=== PATIENT | female | born 1965 | race Caucasian/White ===

== ENCOUNTER 2017-04-29 05:59 | Day surgery (SDC) | payer BC, OTHER ==
[2017-04-28 09:55] VITALS: BP 138/90
[2017-04-28 10:16] LABS: ALANINE AMINOTRANSFERASE 18 U/L (12-78); ALBUMIN 3.8 g/dL (3.4-5.0); ANION GAP 8 mmol/L (5-15); CALCIUM 9.3 mg/dL (8.5-10.1); CHLORIDE 103 mmol/L (98-107); CREATININE 0.97 mg/dL (0.55-1.02)
[2017-04-28 10:19] LABS: ALKALINE PHOSPHATASE 70 U/L (45-117); BILIRUBIN,TOTAL 0.5 mg/dL (0.2-1.0); TOTAL PROTEIN 7.5 g/dL (6.4-8.2)
[~2017-04-29] VITALS: Ht 162.6 cm; Wt 111.0 kg
[~2017-04-29 05:59] MED LIST: LOSA100T6 PO
[2017-04-29] MEDS ORDERED: BUPIVACAINE/PF 0.5% ONE (07:12)
[2017-04-29] MEDS ORDERED: EPINEPHRINE 1 MG/ML, 1ML ONE (07:13)
[2017-04-29] MEDS ORDERED: BACITRACIN 50,000 UNIT ONE (07:13)
[2017-04-29] MEDS ORDERED: LACTATED RINGERS 1,000 ML IV SCH (07:15)
[2017-04-29 07:16] VITALS: BP 138/90
[2017-04-29] MEDS ORDERED: DEXAMETHASONE 4 MG/ML, 1ML ONE (08:03)
[2017-04-29] MEDS ORDERED: ROCURONIUM 10 MG/ML,10ML ONE ×2 (08:03→08:04)
[2017-04-29] MEDS ORDERED: GLYCOPYRROLATE 0.2MG/1ML, 5ML ONE (08:03)
[2017-04-29] MEDS ORDERED: NEOSTIGMINE 1 MG/ML, 10ML ONE (08:03)
[2017-04-29] MEDS ORDERED: ONDANSETRON 2MG/ML, 2ML ONE (08:03)
[2017-04-29] MEDS ORDERED: SUCCINYLCHOLINE 20 MG/ML, 10ML ONE (08:03)
[2017-04-29] MEDS ORDERED: PROPOFOL 10 MG/ML, 20ML ONE ×3 (08:03→08:54)
[2017-04-29] MEDS ORDERED: CEFAZOLIN 1,000 MG ONE (08:03)
[2017-04-29] MEDS ORDERED: MIDAZOLAM 1 MG/ML, 2ML ONE ×2 (08:06)
[2017-04-29] MEDS ORDERED: FENTANYL PF 100 MCG/2ML ONE ×2 (08:06→09:46)
[2017-04-29] MEDS ORDERED: LIDOCAINE GEL 2%, 5ML ONE ×10 (08:25→08:26)
[2017-04-29] MEDS: OXYcodone 5 MG/5 ML ORAL.SOL UDC PO PRN ×2 (08:48→09:48)
[2017-04-29] MEDS ORDERED: FENTANYL PF 100 MCG/2ML IV PRN (09:00)
[2017-04-29] MEDS ORDERED: EPHEDRINE 50 MG/ML, 1ML IVPush PRN (09:00)
[2017-04-29] MEDS ORDERED: ALBUTEROL SULFATE 2.5 MG/3 ML NPPB PRN (09:00)
[2017-04-29] MEDS ORDERED: METOCLOPRAMIDE 5 MG/ML, 2ML IV PRN (09:00)
[2017-04-29] MEDS ORDERED: HYDROmorphone 1 MG/ML, 1ML IV PRN (09:00)
[2017-04-29] MEDS ORDERED: MIDAZOLAM 1 MG/ML, 2ML IV PRN (09:00)
[2017-04-29] MEDS ORDERED: LABETALOL 5MG/ML, 20ML IV PRN (09:00)
[2017-04-29] MEDS ORDERED: ONDANSETRON 2MG/ML, 2ML IVPush PRN (09:00)
[2017-04-29] MEDS ORDERED: hydrALAzine 20 MG/ML, 1ML IV PRN (09:00)
[2017-04-29] MEDS ORDERED: MEPERIDINE/PF 50 MG/ML ONE (09:46)
[2017-04-29] MEDS ORDERED: OXYcodone 5 MG/5 ML ORAL.SOL UDC ONE (09:46)
[2017-04-29] MEDS: MEPERIDINE/PF 25MG/0.5ML IVPush PRN ×2 (09:48→10:04)
[2017-04-29] MEDS ORDERED: KETOROLAC 30 MG/1 ML ONE (10:20)
[2017-04-29] MEDS ORDERED: KETOROLAC 30 MG/1 ML IVPush STA (10:22)
[2017-04-29] MEDS ORDERED: ACETAMINOPHEN 325 MG TABLET ONE (11:55)
[2017-04-29] MEDS ORDERED: ACETAMINOPHEN 325 MG TABLET PO PRN (14:30)
== END 2017-04-29 12:05 ==
LOC: OUT 05:59
PROVIDERS: ATTEND Surgery
DX: T85.9XXA Unspecified complication of internal prosthetic device, implant and graft, initial encounter (principal); E66.9 Obesity, unspecified; I10 Essential (primary) hypertension; Z68.41 Body mass index [BMI] 40.0-44.9, adult; Y83.8 Other surgical procedures as the cause of abnormal reaction of the patient, or of later complication, without mention of misadventure at the time of the procedure; Y92.89 Other specified places as the place of occurrence of the external cause
CPT/HCPCS: 36415; 43774; 80053; J0171; J0330; J0690; J1100; J1885; J2175; J2250; J2405; J2704; J3490; J7120; J2710; J3010